=== PATIENT | male | born 1950 | race Caucasian/White ===

== ENCOUNTER 2022-06-24 08:37 | Outpatient (CLI) | payer MEDICARE ==
[2022-06-24 09:03] LABS: Anion Gap 15 mmol/L (10-20); BUN (Urea Nitrogen) 11 mg/dL (8.4-25.7); Calc. Creatinine Clearance 0 mL/min (70-130); Calcium 8.9 mg/dL (7.8-10.44); Carbon Dioxide 25 mmol/L (23-31); Chloride 103 mmol/L (98-107); Estimated GFR 96; Glucose 127 mg/dL (80-115); Magnesium 1.8 mg/dL (1.6-2.6); Sodium 139 mmol/L (136-145)
[2022-06-24 13:03] LABS: Hemoglobin A1c 6.3 % (4.0-6.0)
[2022-06-24 13:16] LABS: Cardiac Risk 4.5 (Less than 4.5); Cholesterol 157 mg/dl (< 200 Desired); HDL Cholesterol 35 mg/dL (>60 Neg Risk); LDL Cholesterol, Calculated 87 mg/dL; Triglycerides 177 mg/dL (Less than 150)
[2022-06-25 01:48] LABS: Follow-up Chemistry Comp? YES; Follow-up Result - Chemistry REPORT FAXED
== END 2022-06-24 08:38 | disposition home or self-care (01) ==
LOC: NAV LABSP 08:37
PROVIDERS: ATTEND Specialist
DX: I25.118 Atherosclerotic heart disease of native coronary artery with other forms of angina pectoris (principal); E78.2 Mixed hyperlipidemia; E11.59 Type 2 diabetes mellitus with other circulatory complications; R00.2 Palpitations
CPT/HCPCS: 80048; 80061; 83036; 83735; 84443